=== PATIENT | female | born 1985 | race Caucasian/White ===

== ENCOUNTER 2017-05-05 20:00 | Inpatient (IN) | payer OTHER ==
[~2017-05-05] VITALS: Ht 172.7 cm; Wt 88.9 kg
[2017-05-05 20:20] VITALS: BP 121/75
[2017-05-05 21:08] LABS: ABSOLUTE BASOPHIL COUNT 0 /CUMM (0.0-0.2); ABSOLUTE EOSINOPHIL COUNT 0.1 /CUMM (0.0-0.7); ABSOLUTE GRANULOCYTE CT 9.7 /CUMM (1.4-6.5); ABSOLUTE LYMPH COUNT 2.8 /CUMM (1.2-3.4); ABSOLUTE MONOCYTE COUNT 1.2 /CUMM (0.10-0.60); BASOPHIL % 0.3 % (0.0-2.0); EOSINOPHIL % 0.8 % (0-5); GRANULOCYTE % 70.2 % (42.2-75.2); HEMATOCRIT 37.8 % (37-47); MEAN CORPUSCULAR HGB CONC 33.9 G/DL (33.0-37.0); MEAN CORPUSCULAR VOLUME 88.5 FL (81.0-99.0); MEAN PLATELET VOLUME 9.4 FL (7.4-10.4); PLATELET COUNT 243 /CUMM (130-400); RBC DISTRIBUTION WIDTH 13.5 % (11.5-14.5); RED BLOOD CELL CT 4.27 /CUMM (4.20-5.40); WHITE BLOOD CELL COUNT 13.9 /CUMM (4.8-10.8)
--- NOTE | 2017-05-05 21:10 | History & Physical ---
General Information and HPI MD Statement: I have seen and personally examined BRENT AMADOR and documented this H&P. The patient is a 31 year old female at 41 weeks gestation who presented with a chief complaint of LABOR PAINS. 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 EENTM: Denies: blurred vision, double vision, visual changes. Respiratory: Denies: short of breath. GI: Denies: diarrhea, nausea, vomiting. Neurological/Psychological: Denies: anxiety, dementia. Exam & Diagnostic Data Last 24 Hrs of Vital Signs/I&O vss Vital Signs Date Time Temp Pulse Resp B/P B/P Pulse O2 O2 Flow FiO2 Mean Ox Delivery Rate 05/05 2019 121/75 Obstetric Exam Wgt Gained During : 46# Pelvimetry: tested to 8#4oz Dilation (cm): 4 Effacement (%): 50 Station: -2 Membranes: intact Fluid: unknown Fundal Height (cm): 40 Multiple Gestation? No Contractions: q 2-3 min #1 - FHR Baseline: 140 Category: 1 Estimated Weight: 3800g Presentation: vtx Patient for Induction? No Physical Exam General Appearance Alert, Oriented X3, Cooperative, No Acute Distress Skin No Rashes HEENT Atraumatic Neck Supple Cardiovascular Regular Rate Lungs Clear to Auscultation Abdomen Soft Labs Blood Type & Rh: O pos Antibody Screen: neg Hct/Hgb & Platelets #1: 40.2/13/284 Hct/Hgb & Platelets #2: 38.8/12.1/212 Rubella: imm VDRL #1: nr VDRL #2: nr HbsAg: neg HIV #1: nr HIV #2 nr 1 Hr P Group B Strep: negative Initial Ultrasound: unk Anatomy Ultrasound: unk Ultrasound for EFW: 4500g Genetic Testing: unk Last 24 Hrs of Labs/Jayden: Laboratory Tests 05/05/17 2030: CBC w Diff Pending, WBC Pending, RBC Pending, Hgb Pending, Hct Pending, MCV Pending, MCH Pending, RDW Pending, Plt Count Pending, MPV Pending, PUBS MCHC Pending, Urine Color Pending, Urine Clarity Pending, Urine pH Pending, Ur Specific [place] Pending, Urine Protein Pending, Urine Ketones Pending, Urine Nitrite Pending, Urine Bilirubin Pending, Urine Urobilinogen Pending, Ur Leukocyte Esterase Pending, Ur Microscopic SEDIMENT EXAMINED, Urine RBC Pending, Urine Hemoglobin Pending, Urine Glucose Pending Assessment/Plan Assessment/Plan: Pt at 41weeks LGA 4500G baby in spontanious labor, shoulder dystocia precautions observed. Pt is 4cm requesting an epidural As Ranked By This Provider Problem List: 1. Core Measures Venous Thromboembolism VTE Risk Factors / No Mechanical VTE Prophylaxis d/t LowRisk-No Interven Req'd No VTE Pharm Prophylaxis d/t LowRisk-No Interven Req'd Attending MD Review Statement Attending Statement Attending MD Statement: examined this patient, discussed with family, discussed w/nursing
--- NOTE | 2017-05-06 02:44 | Labor & Delivery Summary ---
Delivery Summary Vaginal Delivery: Vaginal: spontaneous Episiotomy/Lacerations: Type: 2 DEGREE Repair: 3-0 AND 0 POLYSORB Anesthesia: BLOCK Placenta: Placenta: spontanteous, normal, 3 vessel, nuchal cord (x_) Anesthesia: block Baby's Weight: 9# 15 OZ Apgars - 1 Min: 9 Apgars - 5 Min: 9 Additional Comments: PUSHED WITH EPIDURAL X3 LOOSE NUCHAL CORD GOOD HEMOSTASIS
[2017-05-07 08:06] LABS: ABSOLUTE BASOPHIL COUNT 0.1 /CUMM (0.0-0.2); ABSOLUTE EOSINOPHIL COUNT 0.2 /CUMM (0.0-0.7); ABSOLUTE GRANULOCYTE CT 7.8 /CUMM (1.4-6.5); ABSOLUTE LYMPH COUNT 3.5 /CUMM (1.2-3.4); ABSOLUTE MONOCYTE COUNT 0.9 /CUMM (0.10-0.60); BASOPHIL % 0.4 % (0.0-2.0); EOSINOPHIL % 1.3 % (0-5); GRANULOCYTE % 62.9 % (42.2-75.2); HEMATOCRIT 33.5 % (37-47); MEAN CORPUSCULAR HGB 29.9 PG (27.0-31.0); MEAN CORPUSCULAR HGB CONC 33.2 G/DL (33.0-37.0); MEAN PLATELET VOLUME 9.8 FL (7.4-10.4); PLATELET COUNT 187 /CUMM (130-400); RBC DISTRIBUTION WIDTH 13.8 % (11.5-14.5); RED BLOOD CELL CT 3.72 /CUMM (4.20-5.40); WHITE BLOOD CELL COUNT 12.4 /CUMM (4.8-10.8)
--- NOTE | 2017-05-07 13:55 | PN- Post Delivery/GYN ---
Subjective Subjective: pt feeling well. amb / void / fatoumata po. +bf. pain well controlled w/ motrin. Objective Last 24 Hrs of Vital Signs/I&O afeb, v/ss Physical Exam: nad abd soft nt nd ff selene mild lochia ext nt tr b/l pedal edema Current Medications: Current Medications Sig/Jessica Start time Last Medication Dose Route Stop Time Status Admin Acetaminophen 650 MG Q4P PRN 05/06 244 AC PO Docusate Sodium 100 MG BID PRN 05/06 244 AC 05/06 PO 2011 Hydroxyzine HCl 50 MG AT BEDTIME NEED.. 05/06 244 AC PO Ibuprofen 800 MG .STK-MED ONE 05/07 004 DC PO 05/07 40 Ibuprofen 800 MG Q6P PRN 05/06 244 AC 05/07 PO 0746 Magnesium Hydroxide 30 ML DAILY PRN 05/06 244 AC PO Oxycodone/ 1 TAB Q3P PRN 05/06 244 AC 05/07 Acetaminophen PO 1258 Last 24 Hrs of Labs/Jayden: Laboratory Tests 05/07/17 0650: CBC w Diff NO MAN DIFF REQ, RBC 3.72 L, MCV 90.0, MCH 29.9, RDW 13.8, MPV 9.8, Gran % 62.9, Lymphocytes % 28.0, Monocytes % 7.4, Eosinophils % 1.3, Basophils % 0.4, Absolute Granulocytes 7.8 H, Absolute Lymphocytes 3.5 H, Absolute Monocytes 0.9 H, Absolute Eosinophils 0.2, Absolute Basophils 0.1, PUBS MCHC 33.2 Assessment/Plan Assessment/Plan ppd 1 s/p , doing well -cont ood / amb -pain mgmt -routine pp care -ant d/c home luke Attending MD Review Statement Attending Statement Attending MD Statement: examined this patient, discussed with family, discussed with nursing
[2017-05-08] MEDS ORDERED: PERCOCET 5-3251 EACH PO (08:07)
--- NOTE | 2017-05-08 08:10 | PN- Post Delivery/GYN ---
Subjective Subjective: feeling well Review of Systems Constitutional: Reports: no symptoms. Denies: chills, fever. EENTM: Denies: blurred vision, double vision, visual changes. Cardiovascular: Reports: peripheral edema. Denies: chest pain, edema. Respiratory: Denies: cough, short of breath. Gastrointestinal: Denies: diarrhea, nausea, vomiting. Neurological/Psychological: Denies: anxiety, depressed. Objective Last 24 Hrs of Vital Signs/I&O vss Physical Exam General Appearance Alert, Oriented X3, Cooperative, No Acute Distress Cardiovascular Regular Rate Lungs Clear to Auscultation Abdomen Soft, fundus firm Pelvic (FEMALE) lochia serosanganous Current Medications: Current Medications Sig/Jessica Start time Last Medication Dose Route Stop Time Status Admin Acetaminophen 650 MG Q4P PRN 05/06 244 AC PO Docusate Sodium 100 MG BID PRN 05/06 244 AC 05/06 PO 2011 Hydroxyzine HCl 50 MG AT BEDTIME NEED.. 05/06 244 AC PO Ibuprofen 800 MG .STK-MED ONE 05/07 2055 DC PO 05/07 205 Ibuprofen 800 MG .STK-MED ONE 05/07 1524 DC PO 05/07 1525 Ibuprofen 800 MG Q6P PRN 05/065 AC 05/08 PO 0404 Magnesium Hydroxide 30 ML DAILY PRN 05/06 244 AC PO Oxycodone/ 1 TAB Q3P PRN 05/06 244 AC 05/07 Acetaminophen PO 1258 Assessment/Plan Assessment/Plan ppd #2 vss afebrile plan d/c home Problem List: 1. Attending MD Review Statement Attending Statement Attending MD Statement: examined this patient, discussed with family, discussed with nursing
== END 2017-05-08 10:33 | DRG 775 ==
LOC: CBCO 20:00 → GNO 20:13
PROVIDERS: Obstetrics & Gynecology
PROC: 0KQM0ZZ Repair Perineum Muscle, Open Approach (ICD-10-PCS; principal; 2017-05-06)
PROC: 10E0XZZ Delivery of Products of Conception, External Approach (ICD-10-PCS; 2017-05-06)
DX: O48.0 Post-term pregnancy (principal); O36.63X0 Maternal care for excessive fetal growth, third trimester, not applicable or unspecified; Z3A.41 41 weeks gestation of pregnancy; Z37.0 Single live birth; O70.1 Second degree perineal laceration during delivery; O69.81X0 Labor and delivery complicated by cord around neck, without compression, not applicable or unspecified; O77.0 Labor and delivery complicated by meconium in amniotic fluid
CPT/HCPCS: GNOP; GNOS; 36415; 81001; 87071; 87086; 88307; J7120